=== PATIENT | female | born 1965 | race Caucasian/White ===

== ENCOUNTER → 2019-03-02 11:00 | Day surgery (SDC) | payer BC ==
[~2019-03-02 11:00] MED LIST: Buffered Lidocaine 1% SYRIN* 1 ML/SYRINGE INTRADERM ONE; Dexamethasone IV* 4 MG/ML 1 ML (4 MG) ONE; Famotidine IV* 10 MG/ML 2 ML (20 mg) IV ONE; Famotidine IV* 10 MG/ML 2 ML (20 mg) ONE; Ketorolac INJ* 30 MG/ML 1 ML VIAL ONE; Lactated Ringers 1000 ML Bag* 1,000 ML IV SCH; Lidocaine 2% PF * 5 ML VIAL ONE; Midazolam* 1 MG/ML 5 ML VIAL (5 MG) ONE; Naloxone* 0.4 MG/ML 1 ML VIAL IV PRN; Ondansetron INJ* 2 MG/ML VIAL IV PRN; Ondansetron INJ* 2 MG/ML VIAL ONE; Propofol* 10 MG/ML 20 ML BTL ONE; fentaNYL* 50 MCG/ML 2 ML VIAL (100 MCG VIAL) IV PRN; fentaNYL* 50 MCG/ML 2 ML VIAL (100 MCG VIAL) ONE
[2019-03-02 14:49] VITALS: BP 136/84
--- NOTE | 2019-03-02 19:16 | OP ---
DATE OF OPERATION: 03/02/19 - [facility] DATE OF : 65 SURGEON: Isauro Bergman M.D. DRY WALL SPRAYER: None. ANESTHESIA: General endotracheal tube. PRE-OP DIAGNOSIS: Dysfunctional uterine bleeding. POST-OP DIAGNOSIS: Dysfunctional uterine bleeding. OPERATIVE PROCEDURE: D and C, hysteroscopy. ESTIMATED BLOOD LOSS: Minimal. SPECIMEN: Includes endometrium and polyp. FLUIDS: Include 420 cc of saline deficit. FINDINGS: There was cervical stenosis. On hysteroscopy, there were several small endocervical polyps as well as a small endometrial polyp. The cavity appeared slightly distorted from possibly intramural fibroids with pushing in from posteriorly and anteriorly into the cavity, but otherwise the cavity other than the small polyp was relatively normal. DESCRIPTION OF PROCEDURE: The patient identified, procedure identified as D and C, hysteroscopy. The patient was taken to the operating room, prepped and draped in the usual fashion in dorsal lithotomy position under general anesthesia. Two single-toothed tenaculum were placed through the anterior lip of the cervix. The cervix was progressively dilated up to #30 Abel dilator. The above findings were noted. The hysteroscope was hooked up with the MyoSure LITE. Using this, the small endometrial and endocervical polyps were removed. A sharp curette was inserted and a sharp curettage performed. A good specimen was obtained. All sponge and instrument counts were correct, and the patient returned to recovery room in stable condition. [id number] #: [id number] MTDD
== END | disposition home or self-care (01) ==
LOC: OR 11:00
PROVIDERS: ATTEND Obstetrics & Gynecology
DX: N93.8 Other specified abnormal uterine and vaginal bleeding (principal); M19.90 Unspecified osteoarthritis, unspecified site
CPT/HCPCS: 81025; 88305; J1100; J1885; J2250; J2405; J2704; J3010